=== PATIENT | male | born 1945 | race Caucasian/White ===

== ENCOUNTER 2018-09-20 07:28 | Day surgery (SDC) | payer MEDICARE ==
[~2018-09-20 07:28] MED LIST: Metoclopramide 10 MG/2 ML SDV IV PRN; Sodium Chloride 0.9% 1,000 ML IV SCH
[2018-09-20] MEDS ORDERED: Atropine 0.4 MG/ML SDV ONE (10:00)
[2018-09-20] MEDS ORDERED: Propofol 1,000 MG/100 ML SDV ONE (10:00)
[2018-09-20] MEDS ORDERED: Midazolam 1 MG/ML 2 ML SDV ONE (10:00)
--- NOTE | 2018-09-20 14:48 | OR ---
DATE OF OPERATION: 09/20/2018 [employer] ADVISOR: Mandi King RN. PREOPERATIVE DIAGNOSIS: Screening colonoscopy. POSTOPERATIVE DIAGNOSIS: Screening colonoscopy. PROCEDURE: Colonoscopy. ANESTHESIA: MAC. ESTIMATED BLOOD LOSS: None. COMPLICATIONS: None. INDICATION FOR THE PROCEDURE: The patient is a 73-year-old male who is here today for his first screening colonoscopy. Denies any family history of colon cancer. Denies any change in bowel habits. DESCRIPTION OF THE PROCEDURE: Informed consent was obtained with the patient. The patient was taken to the operating room and placed on the table in left lateral decubitus position. Monitored anesthesia care was administered. Digital rectal exam was performed and was normal. Colonoscope then was advanced through the anus and directed toward the cecum. Cecum was reached and identified by appendiceal orifice and ileocecal valve. Colonoscope was then slowly withdrawn. He did have some mild sigmoid diverticulosis, otherwise unremarkable. No polyps, no masses. No areas of ischemia or inflammation identified. Colonoscope then was slowly withdrawn and the rectum also appeared to be normal. Colonoscope then was withdrawn. FINDINGS: Mild sigmoid diverticulosis. RECOMMENDATIONS: We would recommend high-fiber diet and plenty of water. Due to age, we would not recommend any further screening colonoscopies. CELIA/HARVINDER /[id number]
== END 2018-09-20 11:50 | disposition home or self-care (01) ==
LOC: LB.SDS 07:28
PROVIDERS: ATTEND Surgery
DX: Z12.11 Encounter for screening for malignant neoplasm of colon (principal); K57.30 Diverticulosis of large intestine without perforation or abscess without bleeding
CPT/HCPCS: G0121; J0461; J2250; J2704; J7030

== ENCOUNTER 2020-09-01 19:03 | Emergency (ER) | payer MEDICARE ==
[2020-09-01] MEDS ORDERED: Sodium Chloride 0.9% 10 ML Syringe FLUSH PRN (19:25)
[2020-09-01] MEDS ORDERED: Lidocaine 1% with EPINEPHrine 1:100,000 50 ML MDV SUBCUT STA (19:26)
[2020-09-01] MEDS ORDERED: Sodium Chloride 0.9% 1,000 ML IV SCH (19:30)
--- NOTE | 2020-09-01 19:41 | EDM.PDOC ---
ED HPI GENERAL MEDICAL PROBLEM - General Chief Complaint: Head Injury Stated Complaint: fall, laceration to head Time Seen by Provider: 09/01/20 19:20 Source of Information: Reports: EMS History Limitations: Reports: No Limitations - History of Present Illness INITIAL COMMENTS - FREE TEXT/NARRATIVE: patient was brought to the ER by EMS - after he fell and hit his head. He was at a bar, when he tried to stand up, tripped and landed on the floor, but hit his head on the counter on the way down. LOC for 4-5 seconds before he regained consciousness. No N/V. no headache. no vision problems. He has a cut wound on the left eyebrow. He admits that he didn't drink enough water today. Denies CP, SOB. not on blood thinner. intact vision and normal speech. BS on the scene 170 no DM, no blood pressure. Onset: Sudden Duration: Minutes: (30) Location: Reports: Face Left Arm Pain Score (Numeric/FACES): 3 - Related Data Allergies Allergy/AdvReac Type Severity Reaction Status Date / Time No Known Allergies Allergy Verified 09/18/18 09:49 Home Meds: Home Meds Apixaban [Eliquis] 5 mg PO BID #30 tablet 09/01/20 [Rx] lisinopriL [Lisinopril] 5 mg PO DAILY #30 tablet 09/01/20 [Rx] Past Medical History Musculoskeletal History: Reports: Other (See Below) Other Musculoskeletal History: Right toes dislocation - Past Surgical History Musculoskeletal Surgical History: Reports: Other (See Below) Other Musculoskeletal Surgeries/Procedures:: pins to right toes to fix dislocation Social & Family History - Family History GI: Reports: Other (See Below) Other GI Family History: mother-colon CA ED ROS GENERAL - Review of Systems Review Of Systems: See Below Constitutional: Reports: No Symptoms HEENT: Reports: No Symptoms Respiratory: Reports: No Symptoms Cardiovascular: Reports: No Symptoms GI/Abdominal: Reports: No Symptoms Musculoskeletal: Reports: No Symptoms Skin: Reports: No Symptoms Neurological: Reports: No Symptoms ED EXAM, HEAD INJURY - Physical Exam Exam: See Below Text/Narrative:: GCS 15 Exam Limited By: No Limitations General Appearance: Alert, WD/WN, No Apparent Distress Head: Other (there is a 1 in laceration to the left eyebrow. ) Eyes: Bilateral Eye: EOMI, PERRL Neck: Non-Tender, Full Range of Motion Respiratory: No Respiratory Distress, Lungs Clear Cardiovascular: Normal Peripheral Pulses, Regular Rate, Rhythm GI/Abdominal Exam: Normal Bowel Sounds, Soft, Non-Tender Extremities: Normal Inspection Neurologic: No Motor/Sensory Deficits, Alert, Normal Mood/Affect, Oriented x 3 - [place] Coma Score Best Eye Response (Gina): (4) Open Spontaneously Best Verbal Response (Gina): (5) Oriented Best Motor Response ([place]): (6) Obeys Commands [place] Total: 15 ED LACERATION/WOUND & PRUDENCIO PROC - Laceration/Wound Repair Left Face Lac/wound length in cm: 2.5 Appearance: Subcutaneous, Irregular Distal NVT: Neuro & Vascular Intact, No Tendon Injury Anesthetic Type: Local Local Anesthesia - Lidocaine (Xylocaine): 1% with EPI Local Anesthetic Volume: 3cc Skin Prep: Chlorhexidine (Hibiciens), Providone-Iodine (Betadine) Exploration/Debridement/Repair: Wound Explored, No Foreign Material Found Closed with: Sutures Suture Size: 5-0 # of Sutures: 3 Suture Type: Prolene Sterile Dressing Applied: Provider Tetanus Status Addressed: No Complications: No #1 Interpretation EKG Date: 09/01/20 Rhythm: A-Flutter Allison: Normal P-Wave: Present QRS: Normal ST-T: Normal QT: Normal Comparison: NA - No Prior EKG Course - Vital Signs Last Recorded V/S: Last Vital Signs Temp 36.2 C 09/01/20 20:02 Pulse 80 09/01/20 20:23 Resp 16 09/01/20 20:02 BP 153/93 H 09/01/20 21:28 Pulse Ox 94 L 09/01/20 20:02 - Orders/Labs/Meds Orders: Active Orders 24 hr Category Date Time Status Saline Lock Insert [OM.PC] Routine Oth 09/01/20 19:25 Ordered Labs: Laboratory Tests 09/01/20 09/01/20 09/01/20 Range/Units 19:25 19:25 19:26 WBC 6.5 (4.0-11.0) K/uL RBC 4.89 (4.50-6.50) M/uL Hgb 15.4 (13.0-18.0) g/dL Hct 44.2 (40.0-54.0) % MCV 90 (76-96) fL MCH 31.5 (27.0-32.0) pg MCHC 34.8 (31.0-35.0) g/dL RDW 13.2 (11.0-16.0) % Plt Count 152 (150-400) K/uL MPV 10.3 H (6.0-10.0) fL Sodium 142 (136-145) mmol/L Potassium 4.0 (3.5-5.1) mmol/L Chloride 105 (98-107) mmol/L Carbon Dioxide 25.7 (21.0-32.0) mmol/L Anion Gap 15.3 H (5.0-15.0) mmol/L BUN 19 (8-26) mg/dL Creatinine 0.96 (0.70-1.30) mg/dL Est Cr Clr Drug Dosing TNP Estimated GFR (MDRD) > 60 (>60) MLS/MIN BUN/Creatinine Ratio 19.8 (6-25) Glucose 123 H D (74-100) mg/dL Calcium 8.5 (8.5-10.1) mg/dL Phosphorus 3.5 (2.5-4.9) mg/dL Magnesium (1.8-2.4) mg/dL Troponin I 0.041 (0.000-0.060) ng/mL 09/01/20 Range/Units 19:26 WBC (4.0-11.0) K/uL RBC (4.50-6.50) M/uL Hgb (13.0-18.0) g/dL Hct (40.0-54.0) % MCV (76-96) fL MCH (27.0-32.0) pg MCHC (31.0-35.0) g/dL RDW (11.0-16.0) % Plt Count (150-400) K/uL MPV (6.0-10.0) fL Sodium (136-145) mmol/L Potassium (3.5-5.1) mmol/L Chloride (98-107) mmol/L Carbon Dioxide (21.0-32.0) mmol/L Anion Gap (5.0-15.0) mmol/L BUN (8-26) mg/dL Creatinine (0.70-1.30) mg/dL Est Cr Clr Drug Dosing Estimated GFR (MDRD) (>60) MLS/MIN BUN/Creatinine Ratio (6-25) Glucose (74-100) mg/dL Calcium (8.5-10.1) mg/dL Phosphorus (2.5-4.9) mg/dL Magnesium 2.1 (1.8-2.4) mg/dL Troponin I (0.000-0.060) ng/mL Meds: Medications Discontinued Medications Generic Name Dose Route Start Last Admin Trade Name Pako PRN Reason Stop Dose Admin Apixaban 5 mg 09/01/20 21:15 09/01/20 21:29 Apixaban 5 Mg Tab PO 09/01/20 21:16 5 mg ONETIME ONE Administration Diphtheria/Tetanus/Acell Pertussis 0.5 ml 09/01/20 21:25 09/01/20 21:29 Diphtheria,Pertussis(Acell),Tetanus Vaccine 0.5 Ml Sdv IM 09/01/20 21:26 0.5 ml .ONCE ONE Administration Sodium Chloride 1,000 mls @ 500 mls/hr 09/01/20 19:30 09/01/20 21:35 Normal Saline IV 500 mls/hr ASDIRECTED FRANCINE Administration Lactated Ringer's 1,000 mls @ 999 mls/hr 09/01/20 21:30 09/01/20 22:13 Ringers, Lactated IV 999 mls/hr ASDIRECTED FRANCINE Administration Lidocaine/Epinephrine 10 ml 09/01/20 19:26 09/01/20 20:24 Lidocaine 1% With Epinephrine 1:100,000 50 Ml Mdv SUBCUT 09/01/20 19:27 10 ml NOW STA Administration Lisinopril 2.5 mg 09/01/20 21:16 09/01/20 21:28 Lisinopril 2.5 Mg Tab PO 09/01/20 21:17 2.5 mg NOW STA Administration Metoprolol Tartrate 25 mg 09/01/20 20:09 09/01/20 20:23 Metoprolol Tartrate 25 Mg Tab PO 09/01/20 20:10 25 mg ONETIME ONE Administration Metoprolol Tartrate Confirm 09/01/20 20:21 09/01/20 20:24 Metoprolol Tartrate 25 Mg Tab Administered 09/01/20 20:22 Not Given Dose 25 mg .ROUTE .STK-MED ONE Sodium Chloride 10 ml 09/01/20 19:25 Sodium Chloride 0.9% 10 Ml Syringe FLUSH ASDIRECTED PRN Keep Vein Open - Re-Assessments/Exams Free Text/Narrative Re-Assessment/Exam: 09/01/20 19:31 was connected to a monitor EKG showed aflutter - HR 80-95 labs - CBC, BMP and trop - WNL. CT head - no e/o ICH or fractures wound was cleaned and sutured. see procedure note. IVF bolus was started 09/01/20 21:26 BP was noted to be elevated - Metoprolol 25mg PO was given - HR down to 60's, but BP still slightly high 150/90. Lisinopril 2.5mg PO was given Eliquis 5mg PO as well will be d/cd home on Eliquis and lisinopril Departure - Departure Time of Disposition: 22:30 Disposition: Home, Self-Care 01 Condition: Good Clinical Impression: Mild dehydration Atrial flutter Qualifiers: Atrial flutter type: typical Qualified Code(s): I48.3 - Typical atrial flutter Head injury, acute Qualifiers: Encounter type: initial encounter Qualified Code(s): S09.90XA - Unspecified injury of head, initial encounter Laceration of eyebrow, left Qualifiers: Encounter type: initial encounter Qualified Code(s): S01.112A - Laceration without foreign body of left eyelid and periocular area, initial encounter Hypertension Qualifiers: Hypertension type: unspecified secondary hypertension Qualified Code(s): I15.9 - Secondary hypertension, unspecified - Discharge Information *PRESCRIPTION DRUG MONITORING PROGRAM REVIEWED*: Not Applicable *COPY OF PRESCRIPTION DRUG MONITORING REPORT IN PATIENT FAZAL: Not Applicable Prescriptions: Apixaban [Eliquis] 5 mg PO BID #30 tablet lisinopriL [Lisinopril] 5 mg PO DAILY #30 tablet Instructions: Head Injury, Adult, Post-Concussion Syndrome, [id number], Atrial Flutter, Laceration Care, Adult, Lisinopril tablets, Apixaban oral tablets Referrals: PCP,None [Primary Care Provider] - Forms: ED Department Discharge Additional Instructions: - increase fluids intake - at least 3-4 lit a day ( around a gallon a day ). - start taking blood pressure medications and blood thinners as prescribed - follow up with a PCP within 1 week - for a check up - apply antibiotics ointment on the wound once daily - suture removal after 7-10 days - return to the ER if worsening headache, emesis, speech/vision problems or any concerns - Tylenol for pain as needed - Problem List & Annotations (1) Atrial flutter SNOMED Code(s): 4959289 Code(s): I48.92 - UNSPECIFIED ATRIAL FLUTTER Status: Acute Priority: Low Qualifiers: Atrial flutter type: typical Qualified Code(s): I48.3 - Typical atrial flutter (2) Head injury, acute SNOMED Code(s): 36397487, 11075446 Code(s): S09.90XA - UNSPECIFIED INJURY OF HEAD, INITIAL ENCOUNTER Status: Acute Priority: Low Qualifiers: Encounter type: initial encounter Qualified Code(s): S09.90XA - Unspecified injury of head, initial encounter (3) Hypertension SNOMED Code(s): 47829528 Code(s): I10 - ESSENTIAL (PRIMARY) HYPERTENSION Status: Acute Priority: Low Qualifiers: Hypertension type: unspecified secondary hypertension Qualified Code(s): I15.9 - Secondary hypertension, unspecified; I15 - Secondary hypertension (4) Laceration of eyebrow, left SNOMED Code(s): 80726633747969491 Code(s): S01.112A - LACERATION W/O FB OF LEFT EYELID AND PERIOCULAR AREA, INIT Status: Acute Priority: Low Qualifiers: Encounter type: initial encounter Qualified Code(s): S01.112A - Laceration without foreign body of left eyelid and periocular area, initial encounter (5) Mild dehydration SNOMED Code(s): 8087047735126 Code(s): E86.0 - DEHYDRATION Status: Acute Priority: Low - Problem List Review Problem List Initiated/Reviewed/Updated: Yes - My Orders Last 24 Hours: My Active Orders 09/01/20 19:25 Saline Lock Insert [OM.PC] Routine - Assessment/Plan Last 24 Hours: My Active Orders 09/01/20 19:25 Saline Lock Insert [OM.PC] Routine Plan: - increase fluids intake - at least 3-4 lit a day ( around a gallon a day ). - start taking blood pressure medications and blood thinners as prescribed - follow up with a PCP within 1 week - for a check up - apply antibiotics ointment on the wound once daily - suture removal after 7-10 days - return to the ER if worsening headache, emesis, speech/vision problems or any concerns - Tylenol for pain as needed
[2020-09-01] MEDS ORDERED: Metoprolol Tartrate 25 MG Tab PO ONE (20:09)
[2020-09-01] MEDS ORDERED: Metoprolol Tartrate 25 MG Tab ONE (20:21)
[2020-09-01] MEDS ORDERED: Apixaban 5 MG Tab PO ONE (21:15)
[2020-09-01] MEDS ORDERED: Lisinopril 2.5 MG Tab PO STA (21:16)
[2020-09-01] MEDS ORDERED: Diphtheria,Pertussis(Acell),Tetanus Vaccine 0.5 ML SDV IM ONE (21:25)
[2020-09-01] MEDS ORDERED: Lactated Ringers 1,000 ML IV SCH (21:30)
--- NOTE | 2020-09-02 08:00 | CT ---
Date of Service: 09/01/20 Clinical Data: head injury + LOC UNENHANCED BRAIN CT: Multislice axial acquisition was performed without IV contrast. There is mild atrophy. There are periventricular lucencies bilaterally consistent with small vessel ischemic change. No masses or mass effect. No intracranial hemorrhage. No evidence of acute or subacute infarct. No fractures. IMPRESSION: No acute intracranial abnormalities. [id number] [facility]
== END 2020-09-01 23:00 | disposition home or self-care (01) ==
LOC: LB.ED 19:03
DX: S01.112A Laceration without foreign body of left eyelid and periocular area, initial encounter (principal); I48.3 Typical atrial flutter; I10 Essential (primary) hypertension; E86.0 Dehydration; Z79.01 Long term (current) use of anticoagulants; Z79.899 Other long term (current) drug therapy; Z23 Encounter for immunization; W18.09XA Striking against other object with subsequent fall, initial encounter
CPT/HCPCS: 12011; 36415; 70450; 80048; 83735; 84100; 84484; 85027; 90471; 90715; 93005; 99284-25; A9270-GY; J7030; J7120